=== PATIENT | male | born 1960 | race Caucasian/White ===

== ENCOUNTER 2016-08-10 21:21 | Emergency (ER) | payer OTHER ==
[2016-08-10 21:39] VITALS: BP 131/88; PULSE 72; RESP 18; TEMP 98.2; O2SAT 97
[2016-08-10] MEDS ORDERED: PROPARACAINE 0.5% 15 ML OPHT DROP ONE (21:49)
[2016-08-10] MEDS ORDERED: FLUORESCEIN SODIUM 1 MG STRIP OP ONE ×2 (21:49→21:50)
[2016-08-10] MEDS ORDERED: PROPARACAINE 0.5% 15 ML OPHT DROP OP ONE (21:50)
[2016-08-10] MEDS ORDERED: OFLOXACIN 0.3% SOLN PREPACK OPHT.BTL TAKEHOME ONE (22:09)
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
== END 2016-08-10 22:27 | disposition home or self-care (01) ==
DX: H10.31 Unspecified acute conjunctivitis, right eye (principal); X58.XXXA Exposure to other specified factors, initial encounter